=== PATIENT | female | born 1950 | race Caucasian/White ===

== ENCOUNTER → 2023-08-14 13:25 | Outpatient (REF) | payer MEDICARE, SELFPAY | LOC: RAD 13:25 | PROVIDERS: ATTENDING PHYSICIAN Internal Medicine | DX: J98.8 Other specified respiratory disorders (principal); I26.09 Other pulmonary embolism with acute cor pulmonale | CPT/HCPCS: 71046 ==

== ENCOUNTER → 2023-09-05 16:29 | Outpatient (REF) | payer MEDICARE, SELFPAY | LOC: RAD 16:29 | PROVIDERS: ATTENDING PHYSICIAN Internal Medicine | DX: R91.1 Solitary pulmonary nodule (principal); Z86.711 Personal history of pulmonary embolism | CPT/HCPCS: 71250 ==

== ENCOUNTER → 2024-01-02 08:06 | Outpatient (REF) | payer MEDICARE, SELFPAY | LOC: WDC 08:06 | PROVIDERS: ATTENDING PHYSICIAN Internal Medicine | DX: Z12.31 Encounter for screening mammogram for malignant neoplasm of breast (principal); Z12.39 Encounter for other screening for malignant neoplasm of breast | CPT/HCPCS: 77063; 77067 ==

== ENCOUNTER 2024-03-13 06:16 | Day surgery (SDC) | payer MEDICARE, SELFPAY | END 2024-03-13 15:00 | disposition home or self-care (01) | LOC: GI 06:16 | PROVIDERS: ATTENDING PHYSICIAN Internal Medicine | DX: R19.7 Diarrhea, unspecified (principal) | CPT/HCPCS: 45380; 88305 ==

== ENCOUNTER → 2024-11-06 14:05 | Outpatient (REF) | payer MEDICARE, SELFPAY | LOC: RAD 14:05 | PROVIDERS: ATTENDING PHYSICIAN Physician Assistant; FAMILY PHYSICIAN Internal Medicine | DX: M81.0 Age-related osteoporosis without current pathological fracture (principal) | CPT/HCPCS: 77080 ==

== ENCOUNTER → 2025-03-05 10:05 | Outpatient (REF) | payer MEDICARE, SELFPAY | LOC: WDC 10:05 | PROVIDERS: ATTENDING PHYSICIAN Obstetrics & Gynecology; FAMILY PHYSICIAN Internal Medicine | DX: R92.8 Other abnormal and inconclusive findings on diagnostic imaging of breast (principal) | CPT/HCPCS: 76642; 77061; 77065 ==

== ENCOUNTER → 2025-03-17 06:28 | Outpatient (REF) | payer MEDICARE, SELFPAY ==
--- NOTE | 2025-03-17 09:13 | OID.BR.INTR ---
[facility] Breast Navigator - Initial
- -
Date of Contact: 03/17/25
Met with patient. Patient given written information on navigator service available at [facility]. Will follow up as needed per protocol.
== END ==
LOC: WDC 06:28
PROVIDERS: ATTENDING PHYSICIAN Obstetrics & Gynecology
DX: N63.12 Unspecified lump in the right breast, upper inner quadrant (principal)
CPT/HCPCS: 19081; 76098; 88305; 88341; 88342; 88360; A4648